=== PATIENT | male | born 1970 | race Caucasian/White ===

== ENCOUNTER 2023-05-12 14:17 | Emergency (ER) | payer OTHER ==
--- NOTE | 2023-05-12 14:46 | EDPHYS ---
Physician Documentation [facility] Name: Gabe Espino Age: 53 yrs Sex: Male : 1970 Arrival Date: 05/12/2023 Time: 14:17 Bed 20 Private MD: TRUMAN Physician Tyshawn Silverio HPI: 05/12 14:39 This 53 yrs old Male presents to ER via EMS with complaints of Chest Pain. [facility] 14:39 The patient or guardian reports chest pain that is located primarily in the anterior [facility] chest wall, bilaterally. Onset: 1 hour(s) ago. The pain does not radiate. Associated signs and symptoms: The patient has no apparent associated signs or symptoms. The chest pain is described as aching. Historical: - Allergies: 14:22 No Known Allergies; ld1 - Home Meds: 14:22 None [Active]; ld1 - PMHx: 14:22 Myocardial infarction; ld1 - PSHx: 14:22 None; ld1 - Immunization history:: Adult Immunizations up to date, Client reports having NOT received the Covid vaccine. - Social history:: Smoking status: Patient denies any tobacco usage or history of. Patient/guardian denies using alcohol. ROS: 14:41 Constitutional: Negative for fever, chills, and weight loss, Eyes: Negative for injury, noel pain, redness, and discharge, ENT: Negative for injury, pain, and discharge, Neck: Negative for injury, pain, and swelling, Respiratory: Negative for shortness of breath, cough, wheezing, and pleuritic chest pain, Abdomen/GI: Negative for abdominal pain, nausea, vomiting, diarrhea, and constipation, Back: Negative for injury and pain, : Negative for injury, bleeding, discharge, and swelling, Skin: Negative for injury, rash, and discoloration, Neuro: Negative for headache, weakness, numbness, tingling, and seizure, Psych: Negative for depression, anxiety, suicide ideation, homicidal ideation, and hallucinations, Allergy/Immunology: Negative for hives, rash, and allergies, Endocrine: Negative for neck swelling, polydipsia, polyuria, polyphagia, and marked weight changes, Hematologic/Lymphatic: Negative for swollen nodes, abnormal bleeding, and unusual bruising. 14:41 Cardiovascular: Positive for chest pain. 14:41 MS/extremity: Positive for pain, of the left arm. Exam: 14:41 Constitutional: This is a well developed, well nourished patient who is awake, alert, noel and in no acute distress. Head/Face: Normocephalic, atraumatic. Eyes: Pupils equal round and reactive to light, extra-ocular motions intact. Lids and lashes normal. Conjunctiva and sclera are non-icteric and not injected. Cornea within normal limits. Periorbital areas with no swelling, redness, or edema. ENT: Nares patent. No nasal discharge, no septal abnormalities noted. Tympanic membranes are normal and external auditory canals are clear. Oropharynx with no redness, swelling, or masses, exudates, or evidence of obstruction, uvula midline. Mucous membranes moist. Neck: Trachea midline, no thyromegaly or masses palpated, and no cervical lymphadenopathy. Supple, full range of motion without nuchal rigidity, or vertebral point tenderness. No Meningismus. Chest/axilla: Normal chest wall appearance and motion. Nontender with no deformity. No lesions are appreciated. Cardiovascular: Regular rate and rhythm with a normal S1 and S2. No gallops, murmurs, or rubs. Normal PMI, no JVD. No pulse deficits. Respiratory: Lungs have equal breath sounds bilaterally, clear to auscultation and percussion. No rales, rhonchi or wheezes noted. No increased work of breathing, no retractions or nasal flaring. Abdomen/GI: Soft, non-tender, with normal bowel sounds. No distension or tympany. No guarding or rebound. No evidence of tenderness throughout. Back: No spinal tenderness. No costovertebral tenderness. Full range of motion. Male : Normal genitalia with no discharge or lesions. Skin: Warm, dry with normal turgor. Normal color with no rashes, no lesions, and no evidence of cellulitis. MS/ Extremity: Pulses equal, no cyanosis. Neurovascular intact. Full, normal range of motion. Neuro: Awake and alert, GCS 15, oriented to person, place, time, and situation. Cranial nerves II-XII grossly intact. Motor strength 5/5 in all extremities. Sensory grossly intact. Cerebellar exam normal. Normal gait. Psych: Awake, alert, with orientation to person, place and time. Behavior, mood, and affect are within normal limits. 14:41 ECG was reviewed by the Attending Physician. Vital Signs: 14:21 BP 151 / 106; Pulse 102; Resp 18; Temp 98.3(O); Pulse Ox 98% on R/A; Weight 102.06 kg; ld1 Height 5 ft. 9 in. ; Pain 1/10; 14:54 BP 168 / 93; Pulse 98; Resp 17; Pulse Ox 99% on R/A; cm10 14:21 Body Mass Index 33.23 (102.06 kg, 175.26 cm) ld1 14:21 Pain Scale: Adult ld1 MDM: 14:23 Patient medically screened. [facility] 14:43 Differential diagnosis: abnormal EKG, acute myocardial infarction, anxiety, hiatal noel hernia, myocarditis, pancreatitis, stable angina, unstable angina. HEART Score: History: Moderately Suspicious (1), ECG: Non specific repolarization disturbance / LBTB / PM (1), Age: > 45 and < 65 years (1), Risk Factors: > or = 3 Risk factors for atherosclerotic disease (2), [Hypercholesterolemia] [Hypertension] [+ Family HX]. The patient was given aspirin in the Emergency Department. DURAN Risk Score: 1 - Three or more CAD risk factors, 1- Known CAD, 1 - ASA use in past 7 days. Data reviewed: vital signs, nurses notes, EKG. Consideration of Admission/Observation Escalation of care including admission/observation considered. I considered the following discharge prescriptions or medication management in the emergency department Medications were administered in the Emergency Department. See MAR. Independent interpretation of the following test(s) in the Emergency Department EKG: See my EKG interpretation above. Test considered but Not performed: Other Details pt refusede all labs, understands all risk , mi and possibly . 14:46 ED course: pt said if egk is negative for ami , dc no labs, understands all risk, noel possible . 05/12 14:21 Order name: EKG; Complete Time: 14:22 noel 05/12 14:21 Order name: Cardiac monitoring; Complete Time: : [facility] 05/12 14:21 Order name: EKG - Nurse/Tech; Complete Time: 14: [facility] 05/12 14:21 Order name: O2 Per Protocol; Complete Time: 14: [facility] 05/12 14:21 Order name: O2 Sat Monitoring; Complete Time: 14: [facility] EC:41 Rate is 100 beats/min. QRS [place] is Normal. AR interval is normal. QRS interval is noel normal. QT interval is normal. No Q waves. T waves are Normal. No ST changes noted. Clinical impression: NSR w/ Non-specific ST/T Changes and No evidence of ischemia. Interpreted by me. Reviewed by me. Administered Medications: 14:26 Not Given (Pt received 324mg ASA via EMSs): Aspirin PO Chewable Tablet 324 mg PO once; ld1 81 mg tablets x 4 Disposition Summary: 05/12/23 14:46 Discharge Ordered Location: Home noel Problem: new noel Symptoms: have improved noel Condition: Undetermined noel Diagnosis - Chest pain, unspecified noel - Angina pectoris, unspecified noel - Essential (primary) hypertension noel Followup: noel - With: Private Physician - When: Upon discharge from the Emergency Department - Reason: Recheck today's complaints, Continuance of care, Re-evaluation by your physician Discharge Instructions: - Discharge Summary Sheet noel - Angina noel - Nonspecific Chest Pain, Adult noel - Hypertension, Adult noel - Nonspecific Chest Pain, Adult, [id number] noel - Hypertension, Adult, [id number] noel - Aspirin and Your Heart noel - Managing Your Hypertension noel Forms: - Medication Reconciliation Form noel - Thank You Letter noel - Antibiotic Education noel - Prescription Opioid Use noel - Patient Portal Instructions noel - Leadership Thank You Letter [facility] Prescriptions: - Nitrostat 0.4 mg Sublingual Tablet, Sublingual - place 1 tablet by SUBLINGUAL route one time As needed - at the first sign of an noel attack; no more than 3 tablets are recommended within a 15 minute period.; 25 tablet; Refills: 0, Product Selection Permitted Signatures: Dispatcher [employer] Tyshawn Molina MD MD cha Sims, Lauren RN RN ld1 Corrections: (The following items were deleted from the chart) 15:06 14:22 Chest Single View+RAD.RAD.BRZ ordered. TATIANA SIMPSON
--- NOTE | 2023-05-12 14:46 | ER ---
Nurse's Notes [facility] [place] [place] Name: Gabe Espino Age: 53 yrs Sex: Male : 1970 Arrival Date: 05/12/2023 Time: 14:17 Bed 20 Private MD: Diagnosis: Chest pain, unspecified;Angina pectoris, unspecified;Essential (primary) hypertension Presentation: 05/12 14:21 Chief complaint: EMS states: toned out to [facility] halfway for chest pain that started this ld1 morning - left arm "feels funny." Previous hx of [place]. Coronavirus screen: At this time, the client does not indicate any symptoms associated with coronavirus-19. Ebola Screen: No symptoms or risks identified at this time. Initial Sepsis Screen: Does the patient meet any 2 criteria? No. Patient's initial sepsis screen is negative. Does the patient have a suspected source of infection? No. Patient's initial sepsis screen is negative. Risk Assessment: Do you want to hurt yourself or someone else? Patient reports no desire to harm self or others. Onset of symptoms was May 12, 2023. 14:21 Method Of Arrival: EMS: [facility] ld1 14:21 Acuity: LAISHA 3 ld1 Triage Assessment: 14:22 General: Appears in no apparent distress. comfortable, Behavior is calm, cooperative, ld1 appropriate for age. Pain: Complains of pain in chest Pain does not radiate. Pain currently is 1 out of 10 on a pain scale. at worst was 3 out of 10 on a pain scale. Quality of pain is described as throbbing. EENT: No signs and/or symptoms were reported regarding the EENT system. Neuro: Level of Consciousness is awake, alert, obeys commands, Oriented to person, place, time, situation. Cardiovascular: Capillary refill < 3 seconds Patient's skin is warm and dry. Respiratory: Airway is patent Respiratory effort is even, unlabored. GI: Abdomen is flat, non-distended. : No signs and/or symptoms were reported regarding the genitourinary system. Derm: No signs and/or symptoms reported regarding the dermatologic system. Musculoskeletal: No signs and/or symptoms reported regarding the musculoskeletal system. Historical: - Allergies: 14:22 No Known Allergies; ld1 - Home Meds: 14:22 None [Active]; ld1 - PMHx: 14:22 Myocardial infarction; ld1 - PSHx: 14:22 None; ld1 - Immunization history:: Adult Immunizations up to date, Client reports having NOT received the Covid vaccine. - Social history:: Smoking status: Patient denies any tobacco usage or history of. Patient/guardian denies using alcohol. Screenin:[facility] ED Fall Risk Assessment (Adult) History of falling in the last 3 months, ld1 including since admission No falls in past 3 months (0 pts). Abuse screen: Denies threats or abuse. Denies injuries from another. Nutritional screening: No deficits noted. Tuberculosis screening: No symptoms or risk factors identified. Assessment: 14:25 Reassessment: See triage assessment. ld1 14:31 Reassessment: Patient refused to have an IV started or blood drawn. Dr Silverio cm10 informed. . Pain: Denies pain. 14:33 Reassessment: Dr Silverio at bedside, patient continues to refuse IV, states that he cm10 doesn't want bloodwork. Dr Silverio states, "Your EKG looks good. Ill let you go,". Vital Signs: 14:21 BP 151 / 106; Pulse 102; Resp 18; Temp 98.3(O); Pulse Ox 98% on R/A; Weight 102.06 kg; ld1 Height 5 ft. 9 in. ; Pain 1/10; 14:54 BP 168 / 93; Pulse 98; Resp 17; Pulse Ox 99% on R/A; cm10 14:21 Body Mass Index 33.23 (102.06 kg, 175.26 cm) ld1 14:21 Pain Scale: Adult ld1 ED Course: 14:19 Patient arrived in ED. eb 14:21 Tyshawn Silverio MD is Attending Physician. noel 14:22 Triage completed. ld1 14:22 Arm band placed on right wrist. ld1 14:25 Patient has correct armband on for positive identification. Placed in gown. Bed in low ld1 position. Call light in reach. Side rails up X2. bus monitor on. Pulse ox on. NIBP on. Door closed. Noise minimized. Warm blanket given. 14:25 No provider procedures requiring assistance completed. Patient maintains SpO2 ld1 saturation greater than 95% on room air. 14:31 Alysia Cueto, ROSANGELA is Primary Nurse. cm10 14:56 Provided Education on: POC. Verbalized understanding. . cm10 15:06 Patient did not have IV access during this emergency room visit. ld1 Administered Medications: 14:26 Not Given (Pt received 324mg ASA via EMSs): Aspirin PO Chewable Tablet 324 mg PO once; ld1 81 mg tablets x 4 Medication: 14:25 VIS not applicable for this client. ld1 Outcome: 14:46 Discharge ordered by . noel 15:06 Discharged to Law Enforcement ld1 15:06 Condition: stable 15:06 Discharge instructions given to patient, police, Instructed on discharge instructions, follow up and referral plans. Demonstrated understanding of instructions, follow-up care. 15:06 Patient left the ED. ld1 Signatures: Tyshawn Silverio MD MD cha Botello, Elizabeth eb Sims, Lauren, RN RN ld1 Alysia Cueto RN RN cm10
[2023-05-12 15:12] VITALS: BP 168/93; TEMP 98.3; O2SAT 99
--- NOTE | 2023-05-13 12:15 | EKG ---
Test Date: 2023-05-12 Test Time: 14:23:44 Continuing Education Instructor: NIKITA MEASUREMENT RESULTS: Intervals: Rate: 100 UT: 202 QRSD: 92 QT: 340 QTc: 438 [place]: P: 58 UT: 202 QRS: -32 T: 34 INTERPRETIVE STATEMENTS: Normal sinus rhythm Left axis deviation Inferior infarct, age undetermined Abnormal ECG No previous ECG available for comparison Electronically Signed On 05-13-23 12:12:36 CDT by Michael Santamaria
== END 2023-05-12 15:06 | disposition home or self-care (01) ==
LOC: ER 14:17
DX: I20.9 Angina pectoris, unspecified (principal); I10 Essential (primary) hypertension; I25.2 Old myocardial infarction
CPT/HCPCS: 93005; 99284